=== PATIENT | female | born 1955 | race Caucasian/White ===

== ENCOUNTER 2023-11-09 11:45 | Emergency (ER) | payer OTHER, SELFPAY ==
--- NOTE | ~2023-11-09 | XR_ITS ---
EXAMINATION: XR CHEST CLINICAL INFORMATION: Chest pain COMPARISON: None available. TECHNIQUE: Frontal view of the chest was obtained. FINDINGS: Lungs grossly clear. Heart and pulmonary vessels are normal. No congestive change. XR/XR chest 1V IMPRESSION: No active disease.
--- NOTE | 2023-11-09 11:48 | ECG_ITS ---
Test Reason : CHEST PAIN Blood Pressure : / mmHG Vent. Rate : 076 BPM Atrial Rate : 076 BPM P-R Int : 168 ms QRS Dur : 088 ms QT Int : 382 ms P-R-T Axes : 026 -01 040 degrees QTc Int : 429 ms Normal sinus rhythm Normal ECG No previous ECGs available Referred By: Aaliyah Yates Electronically Signed By:JAVON VASQUEZ
[2023-11-09 11:57] VITALS: BP 141/74; PULSE 80; RESP 18; TEMP 36.6; O2SAT 95; BMI 28.8
--- NOTE | 2023-11-09 11:58 | ED_ITS ---
HPI - SOB/Dyspnea General Chief Complaint: Chest Pain Stated Complaint: SOB, burning sensation in chest Time Seen by Provider: 11/09/23 12:54 Related Data Allergies Allergy/AdvReac Type Severity Reaction Status Date / Time No Known Allergies Allergy Verified 11/09/23 12:00 [facility] Social History Social History Advance Directives: No Do you have a plan to hurt others: No Plan Physical Exam 2 Vital Signs: Vital Signs: Last Vital Signs Temp 98.6 F 11/09/23 15:22 Pulse 84 11/09/23 15:22 Resp 18 11/09/23 15:22 BP 98/59 L 11/09/23 15:22 Pulse Ox 94 11/09/23 15:22 O2 Del Method Room Air 11/09/23 15:22 BMI result Body Mass Index 28.8 Course Course Course Narrative: This is a Rapid Medical Exam performed in triage by Aaliyah Yates PA-C. Full HPI, ROS and PE to be performed by primary ED provider. 68 year-old F w/ PMHx DM, HTN, UTI on Macrobid presenting to the ED c/o chest discomfort, palpiations since 2AM waking her up from sleep. Sx lasted until 9AM, reports mild improvement at present. +SOB. Reports dizziness at present. On ASA PE: talking incomplete sentences, ambulating w/steady gait Plan: EKG, Labs, CXR ordered Medications Administered Discontinued Medications Generic Name Dose Route Start Last Admin Trade Name Freq PRN Reason Stop Dose Admin Acetaminophen 975 mg 11/09/23 13:16 11/09/23 13:39 Acetaminophen 325 Mg Tablet PO 11/09/23 13:17 975 mg ONCE ONE Administration Medical Decision Making Lab Data 11/09/23 12:12 11/09/23 12:12 Labs: Lab Results 11/09/23 11/09/23 Range/Units 12:12 14:29 WBC 8.6 (4.8-10.8) X10*3/uL RBC 4.18 L (4.20-5.50) X10*6/uL Hgb 12.9 (12.0-16.0) g/dl Hct 39.2 (37.0-47.0) % MCV 93.8 (80.0-98.0) fL MCH 30.9 (27.0-33.0) pg MCHC 32.9 (31.0-35.0) g/dl RDW 13.2 (11.0-16.0) % Plt Count 199 (160-400) X10*3/uL MPV 10.7 (9.4-12.3) fL Immature Gran % (Auto) 0.3 (0.0-0.4) % Neut % (Auto) 87.3 H (45-73) % Lymph % (Auto) 7.0 L (20-40) % Irwin % (Auto) 4.3 (2-11) % Eos % (Auto) 0.9 (0-4) % Baso % (Auto) 0.2 (0-2) % Lymph # (Auto) 0.6 L (1.2-4.9) X10*3/uL Irwin # (Auto) 0.4 (0.1-1.2) X10*3/uL Eos # (Auto) 0.1 (0.0-0.4) X10*3/uL Baso # (Auto) 0.0 (0.0-0.2) X10*3/uL Abs Immat Gran (auto) 0.03 (0.00-0.03) X10*3/uL Absolute Neuts (auto) 7.5 (2.0-8.3) x10*3/uL Absolute Nucleated RBC 0.000 (0.0-0.012) X10*3/uL Nucleated RBC % (auto) 0.0 (0.0-0.2) /100WBC PT 11.7 (11.1-13.3) SEC INR 1.0 (0.9-1.1) Sodium 137 (135-145) mmol/L Potassium 3.6 (3.3-5.1) mmol/L Chloride 100 (96-108) mmol/L Carbon Dioxide 26 (22-29) mmol/L Anion Gap 15 (12-20) BUN 10 (9-16) mg/dL Creatinine 0.79 (0.5-1.4) mg/dL Estim Creat Clear Calc 60.5 Estimated GFR > 60 Random Glucose 152 H (60-115) mg/dL Calcium 10.2 (8.4-10.2) mg/dL Magnesium 1.9 (1.6-2.6) mg/dL Total Bilirubin 1.0 (0.0-1.0) mg/dL Direct Bilirubin 0.3 (0.0-0.5) mg/dL AST 20 (5-31) U/L ALT 17 (0-31) U/L Alkaline Phosphatase 68 (39-117) U/L Troponin I High Sens 7.4 8.6 (<3.5-17.0) ng/L B-Natriuretic Peptide 169 H (<100) pg/mL Total Protein 7.8 (6.5-8.0) g/dL Albumin 4.4 (3.5-5.0) g/dL Influenza Type A (PCR) NEGATIVE (Negative) Influenza Type B (PCR) NEGATIVE (Negative) RSV RNA Qual (PCR) NEGATIVE (Negative) SARS-CoV-2 RNA (RT-PCR) NEGATIVE (Negative) Discharge Plan Discharge Clinical Impression: Palpitations Patient Disposition: Home, Self-Care Instructions: Heart Palpitations (ED) Additional Instructions: You were seen and evaluated in the emergency room. Your vital signs were normal and you would not have fever. Your blood work was normal including your cardiac enzymes. Your EKG was normal. Your chest x-ray was normal. Please follow-up with your primary care doctor in the next 3-5 days to discuss using a ?Holter monitor ? for continuous heart monitoring. Please return to the emergency room if you develop any new or concerning symptoms including, but not limited to chest pain, difficulty breathing, fever, palpitations, lightheadedness, loss of consciousness, speech changes, vision changes, numbness/tingling, facial droop or arm/leg weakness. Discharge Date/Time: 11/09/23 15:23 Print Language: Polish
--- OUTSIDE RECORDS SUMMARY | 2023-11-09 12:14 | XMS_ITS | Continuity of Care Document ---
Author Organization [facility] Address [address] [place] [id number]- Care Team Providers Care Sausage Mixer Name Role Phone Dorothy Mcconnell Primary Care Physician [id number]s): [facility]/16/[facility] - 05/16/22 [facility] [address] [place] [id number] Attending Physician: Abilio Acuña Admitting Physician: AdmAbilio ye Referring Physician: Admtr ArFarzaneh Allergies, Adverse Reactions, Alerts No Known Allergies Medications aspirin 81 mg oral tablet 1 tablet = 81 mg, By Mouth, Daily, tablet, 0 Refills, Maintenance Start Date: 07/30/10 Status: Ordered atenolol 50 mg oral tablet 1 tablet = 50 mg, By Mouth, Daily, 0 Refills, Maintenance Start Date: 07/30/10 Status: Ordered docusate sodium 100 mg oral tablet 2 tablets, By Mouth, Daily, # 60 tablet, 6 Refills, Maintenance Start Date: 08/28/10 Status: Ordered metformin 500 mg oral tablet 1 tablet = 500 mg, By Mouth, 2 times a day, 0 Refills, Maintenance Start Date: 07/30/10 Status: Ordered [id number] with Electolytes - oral powder for reconstitution 240 mL, By Mouth, Every 10 minutes, # 4,000 mL, 0 Refills, Maintenance Start Date: 07/30/10 Status: Ordered simvastatin 10 mg oral tablet 1 tablet = 10 mg, By Mouth, Daily at bedtime, 0 Refills, Maintenance Start Date: 07/30/10 Status: Ordered Problem List Condition Confirmation Course Effective Dates Status Health St atus Informant Diabetes mellitus - adult onset Confirmed Active Elevated lipids Confirmed Active Hypertension Confirmed Active Patient Care team information Care Team Personnel Name: Dorothy Mcconnell C Position: [facility] Outreach Member Role: PCP Address: Address: [address] [place] [phone]- Care Team Related Persons Name: LB MONTERO Address: home [address] [place] [address]
--- OUTSIDE RECORDS SUMMARY | 2023-11-09 12:14 | XMS_ITS | Continuity of Care Document ---
Author Organization [facility] Address [address] [place] [address]- Care Team Providers Care Chain Saw Driver Name Role Phone Dorothy Mcconnell Primary Care Physician Encounter [facility] [place] Date(s): 02/26/23 - 02/27/[address] [address]- Discharge Disposition: A-D/C Walkout Attending Physician: Not on Staff, Attending MD Admitting Physician: Not on Staff, Admitting MD Referring Physician: Not on Staff, Referring MD Allergies, Adverse Reactions, Alerts No Known Allergies [...] Refills, Maintenance Start Date: 07/30/10 Status: Ordered Voltaren Arthritis Pain 1% topical gel = 2 Gm, Topically, 4 times a day, # 240 Gm, 0 Refills, Maintenance, 12/15/22 12:07:00 EDT, [id number], Partial fill upon patient request if the prescription is for a schedule II opioid drug.,2 Gm Topically 4 times a day,x30 days, 156, cm, ... Start Date: 12/15/22 Stop Date: 01/14/23 Status: Ordered Problem List Condition Confirmation Course Effective Dates Status Health St atus Informant Diabetes mellitus - adult onset Confirmed Active Elevated lipids Confirmed Active Hypertension Confirmed Active Vital Signs Most recent to oldest [Reference Range]: 1 2 3 Oxygen Saturation [94-100 %] 98 % (02/26/23 9:53 PM) 100 % (02/26/23 8:42 PM) 99 % (02/26/23 7:09 PM) Pulse Rate [55-90 bpm] 92 bpm *H* (02/26/23 9:53 PM) 81 bpm (02/26/23 8:42 PM) 78 bpm (02/26/23 7:09 PM) Blood Pressure [90-138/55-84 mm Hg] 138/68mm Hg (02/26/23 9:53 PM) 123/79mm Hg (02/26/23 8:42 PM) 129/69mm Hg (02/26/23 7:09 PM) Respiratory Rate [16-30 br/min] 18 br/min (02/26/23 7:09 PM) 18 br/min (02/26/23 7:01 PM) Temperature [96.8-100.4 DegF] 97.7 DegF (02/26/23 9:53 PM) 98.0 DegF (02/26/23 8:42 PM) 97.8 DegF (02/26/23 7:09 PM) Mode of Delivery (Oxygen) Room air (02/26/23 7:09 PM) Room air (02/26/23 7:01 PM) Blood pressure sites Arm, left (02/26/23 9:53 PM) Arm, right (02/26/23 8:42 PM) Arm, left (02/26/23 7:09 PM) Temperature Route Oral (02/26/23 9:53 PM) Oral (02/26/23 8:42 PM) Oral (02/26/23 7:09 PM) EKG study * Event Display: EKG Authored Date: Patient Care team information Care Team Personnel Name: Dorothy Mcconnell Position: S Outreach Member Role: PCP Address: Address: [address] [place] [id number]- Care Team Related Persons Name: LB MONTERO Address: home [address] [place] [id number]
--- OUTSIDE RECORDS SUMMARY | 2023-11-09 12:14 | XMS_ITS | Continuity of Care Document ---
Author Organization [facility] Address [address] [place] [phone]- Care Team Providers Care Director Public Name Role Phone Dorothy Mcconnell Primary Care Physician [id number] Date[facility] 11/13/21 - 12/13/[facility] [address] [address] Attending Physician: Abilio Acuña Admitting Physician: AdmAbilio [...] Date: 07/30/10 Status: Ordered Problem List Condition Effective Dates Status Health Status Inform ant Diabetes mellitus - adult onset(Confirmed) Active Elevated lipids(Confirmed) Active Hypertension(Confirmed) Active Care Team Personnel Name: Dorothy Mcconnell Address: [address] [place] [address] [facility] [place], [place] [address]
[2023-11-09 12:17] LABS: MANUAL DIFF FLAG NO
[2023-11-09 12:19] LABS: Basophils Percent Auto 0.2 % (0-2); Eosinophils Absolute Auto 0.1 X10*3/uL (0.0-0.4); Eosinophils Percent Auto 0.9 % (0-4); Hematocrit 39.2 % (37.0-47.0); Hemoglobin 12.9 g/dl (12.0-16.0); Imm Gran Abs Auto 0.03 X10*3/uL (0.00-0.03); Imm Gran Pct Auto 0.3 % (0.0-0.4); Lymphocytes Absolute Auto 0.6 X10*3/uL (1.2-4.9); Mean Corpuscular HGB Conc 32.9 g/dl (31.0-35.0); Mean Corpuscular Hemoglobin 30.9 pg (27.0-33.0); Mean Corpuscular Volume 93.8 fL (80.0-98.0); Mean Platelet Volume 10.7 fL (9.4-12.3); Monocytes Absolute Auto 0.4 X10*3/uL (0.1-1.2); Monocytes Percent Auto 4.3 % (2-11); Neutrophils Absolute Auto 7.5 x10*3/uL (2.0-8.3); Neutrophils Percent Auto 87.3 % (45-73); Platelet Count 199 X10*3/uL (160-400); Red Blood Count 4.18 X10*6/uL (4.20-5.50); Red Cell Distribution Width 13.2 % (11.0-16.0); White Blood Count 8.6 X10*3/uL (4.8-10.8)
[2023-11-09 12:26] LABS: Prothrombin Time 11.7 SEC (11.1-13.3)
[2023-11-09 12:35] LABS: Alanine Aminotransferase 17 U/L (0-31); Albumin Level 4.4 g/dL (3.5-5.0); Alkaline Phosphatase 68 U/L (39-117); Anion Gap 15 (12-20); Aspartate Amino Transferase 20 U/L (5-31); Bilirubin Direct 0.3 mg/dL (0.0-0.5); Blood Urea Nitrogen 10 mg/dL (9-16); Calcium 10.2 mg/dL (8.4-10.2); Carbon Dioxide 26 mmol/L (22-29); Chloride 100 mmol/L (96-108); Creatinine Clr Calc Pharmacy 60.5; Estimated Glomerular Filt Rate > 60; Glucose Random 152 mg/dL (60-115); Magnesium 1.9 mg/dL (1.6-2.6); Potassium 3.6 mmol/L (3.3-5.1); Sodium 137 mmol/L (135-145); Total Protein 7.8 g/dL (6.5-8.0)
[2023-11-09 12:40] LABS: B Type Natriuretic Peptide 169 pg/mL (<100)
[2023-11-09 12:42] LABS: Troponin-I High Sensitivity 7.4 ng/L (<3.5-17.0)
--- NOTE | 2023-11-09 12:55 | ED.GENADULT ---
HPI - General Adult General Chief complaint: Chest Pain Stated complaint: SOB, burning sensation in chest Time Seen by Provider: 11/09/23 12:54 Source: patient Mode of arrival: ambulatory Limitations: no limitations History of Present Illness HPI narrative: This is a 68-year-old woman with pmhx HTN, HLD, NIDDM (on Metformin) who presents for evaluation of palpitations, chest pain and dyspnea. She states she starting feeling this way overnight while sleeping. She states similar episode a few years ago associated stress. Patient's daughter in the room states patient has been stressed recently. Patient states this lasted several hours overnight and she did not sleep. She states having a headache at this time. She states no LOC or nausea/vomiting. She states she was recently diagnosed with a stomach problem and started taking Macrobid (she shows antibiotic Rx bottle to this historian in the exam room). Patient states no flank pain, fever, dysuria or urinary frequency/urgency. Patient states no previous TN or CVA/TIA. She states no exertional chest pain or dyspnea. She states no leg swelling. She states no orthopnea. Related Data Allergies Allergy/AdvReac Type Severity Reaction Status Date / Time No Known Allergies Allergy Verified 11/09/23 12:00 Review of Systems Review of Systems: ROS as per HPI [facility] Social History Social History Advance Directives: No Do you have a plan to hurt others: No Plan Physical Exam ED Vital Signs: Vital Signs - 24 hr 11/09/23 11:57 Temperature 97.9 F Pulse Rate 80 Respiratory Rate 18 Blood Pressure 141/74 H Pulse Oximetry 95 Oxygen Delivery Method Room Air BMI result Body Mass Index 28.8 Gen: NAD, AOx3 HEENT: NCAT, EOMI, normal conjunctiva, neck supple CV: RRR. No murmurs appreciated, no peripheral pitting edema Pulm: CTAB, no increased work of breathing GI: Soft, NTND, no rebound, guarding or rigidity MSK: No asymmetrical lower extremity edema, no calf erythema/edema/tenderness to palpation Neuro: Grossly non focal, symmetrical face, tongue protrudes midline, no nystagmus, sensation intact to bilateral upper and lower extremities, 5/5 motor strength in bilateral upper and lower extremities Medications Administered Discontinued Medications Generic Name Dose Route Start Last Admin Trade Name Freq PRN Reason Stop Dose Admin Acetaminophen 975 mg 11/09/23 13:16 11/09/23 13:39 Acetaminophen 325 Mg Tablet PO 11/09/23 13:17 975 mg ONCE ONE Administration Medical Decision Making Medical Decision Making [facility] Narrative: Differential diagnosis includes, but is not limited to arrhythmia, electrolyte derangement, acute kidney injury, ACS, pneumothorax, anxiety, panic, PVCs, migraine headache, tension headache. I do not suspect intracranial hemorrhage or meningitis given reassuring examination as above with resolution of symptoms following Tylenol. Further, patient has no infectious symptoms or fever. She is well-appearing, alert and oriented and this is not encephalitis. Patient is afebrile and hemodynamically stable on room air. Exam is benign and reassuring. Patient has no neurological deficits. NIH stroke scale 0. Patient is provided Tylenol for headache. I reviewed and interpreted labs, which are noncontributory. I reviewed and interpreted EKG, which is unremarkable for any acute findings. Diagnostic imaging studies as below are unremarkable for any acute findings. Patient has negative for COVID-19, influenza, RSV. On re-examination, patient is well-appearing and in no acute distress. Patient ambulates independently with normal gait. ?Patient states symptoms have resolved. ?There is no indication for further emergent evaluation in this otherwise well-appearing patient as above. ?Patient is provided written and verbal instructions, educational materials, recommendations for outpatient follow-up, strict return precautions and teach back is performed. ?Patient states understanding and agreement with plan of care. ?Patient is discharged home in stable and improved condition. Admission/Observation Consideration of admission/observation: Escalation of care including admission/observation considered Lab Data [facility] Lab Attestation statement: I reviewed the patient's lab results. I independently reviewed and interpreted labs which as below are unremarkable and noncontributory. 11/09/23 12:12 11/09/23 12:12 Labs: Lab Results 11/09/23 11/09/23 Range/Units 12:12 14:29 WBC 8.6 (4.8-10.8) X10*3/uL RBC 4.18 L (4.20-5.50) X10*6/uL Hgb 12.9 (12.0-16.0) g/dl Hct 39.2 (37.0-47.0) % MCV 93.8 (80.0-98.0) fL MCH 30.9 (27.0-33.0) pg MCHC 32.9 (31.0-35.0) g/dl RDW 13.2 (11.0-16.0) % Plt Count 199 (160-400) X10*3/uL MPV 10.7 (9.4-12.3) fL Immature Gran % (Auto) 0.3 (0.0-0.4) % Neut % (Auto) 87.3 H (45-73) % Lymph % (Auto) 7.0 L (20-40) % Bladen % (Auto) 4.3 (2-11) % Eos % (Auto) 0.9 (0-4) % Baso % (Auto) 0.2 (0-2) % Lymph # (Auto) 0.6 L (1.2-4.9) X10*3/uL Bladen # (Auto) 0.4 (0.1-1.2) X10*3/uL Eos # (Auto) 0.1 (0.0-0.4) X10*3/uL Baso # (Auto) 0.0 (0.0-0.2) X10*3/uL Abs Immat Gran (auto) 0.03 (0.00-0.03) X10*3/uL Absolute Neuts (auto) 7.5 (2.0-8.3) x10*3/uL Absolute Nucleated RBC 0.000 (0.0-0.012) X10*3/uL Nucleated RBC % (auto) 0.0 (0.0-0.2) /100WBC PT 11.7 (11.1-13.3) SEC INR 1.0 (0.9-1.1) Sodium 137 (135-145) mmol/L Potassium 3.6 (3.3-5.1) mmol/L Chloride 100 (96-108) mmol/L Carbon Dioxide 26 (22-29) mmol/L Anion Gap 15 (12-20) BUN 10 (9-16) mg/dL Creatinine 0.79 (0.5-1.4) mg/dL Estim Creat Clear Calc 60.5 Estimated GFR > 60 Random Glucose 152 H (60-115) mg/dL Calcium 10.2 (8.4-10.2) mg/dL Magnesium 1.9 (1.6-2.6) mg/dL Total Bilirubin 1.0 (0.0-1.0) mg/dL Direct Bilirubin 0.3 (0.0-0.5) mg/dL AST 20 (5-31) U/L ALT 17 (0-31) U/L Alkaline Phosphatase 68 (39-117) U/L Troponin I High Sens 7.4 8.6 (<3.5-17.0) ng/L B-Natriuretic Peptide 169 H (<100) pg/mL Total Protein 7.8 (6.5-8.0) g/dL Albumin 4.4 (3.5-5.0) g/dL Influenza Type A (PCR) NEGATIVE (Negative) Influenza Type B (PCR) NEGATIVE (Negative) RSV RNA Qual (PCR) NEGATIVE (Negative) SARS-CoV-2 RNA (RT-PCR) NEGATIVE (Negative) Independent Interpretation I performed an independent interpretation of an: EKG and Plain X-Ray Interpretation: I independently reviewed and interpreted EKG which demonstrates normal sinus rhythm at 76 beats per minute, CT 168, QRS 88, QTC 429, no Brugada morphology, no ST/T-wave changes, no delta wave, no epsilon wave, no dagger-like Q-waves, no STEMI. I independently reviewed and interpreted chest x-ray which demonstrates no focal consolidation or pneumothorax. Radiology Impression Discussion of test interpretation with radiology: I have reviewed the radiologist's reading. Radiologist Impression: IMPRESSION: No active disease. Dictated By: Percy Powell MD Signed By: <Electronically signed by Percy Powell MD in OV> 11/09/23 1244 Discharge Plan Discharge Clinical Impression: Palpitations Patient Disposition: Home, Self-Care Instructions: Heart Palpitations (ED) Additional Instructions: You were seen and evaluated in the emergency room. Your vital signs were normal and you would not have fever. Your blood work was normal including your cardiac enzymes. Your EKG was normal. Your chest x-ray was normal. Please follow-up with your primary care doctor in the next 3-5 days to discuss using a ?Holter monitor ? for continuous heart monitoring. Please return to the emergency room if you develop any new or concerning symptoms including, but not limited to chest pain, difficulty breathing, fever, palpitations, lightheadedness, loss of consciousness, speech changes, vision changes, numbness/tingling, facial droop or arm/leg weakness. Print Language: Indonesian
[2023-11-09 13:01] LABS: Influenza A PCR NEGATIVE (Negative); Influenza B PCR NEGATIVE (Negative); Resp Syncy Virus RNA Qual PCR NEGATIVE (Negative); SARS COV2 PCR INHOUSE NEGATIVE (Negative)
[2023-11-09] MEDS: Acetaminophen 325 MG TABLET 975 MG PO (13:39)
[2023-11-09 14:59] LABS: Troponin-I High Sensitivity 8.6 ng/L (<3.5-17.0)
[2023-11-09 15:22] VITALS: BP 98/59; PULSE 84; RESP 18; TEMP 37; O2SAT 94
== END 2023-11-09 15:23 | disposition home or self-care (01) ==
PROVIDERS: Physician Assistant; Emergency Provider Emergency Medicine
DX: R00.2 Palpitations (principal); Z03.818 Encounter for observation for suspected exposure to other biological agents ruled out; R06.02 Shortness of breath; E11.9 Type 2 diabetes mellitus without complications; I10 Essential (primary) hypertension; E78.5 Hyperlipidemia, unspecified; Z79.84 Long term (current) use of oral hypoglycemic drugs
CPT/HCPCS: 0241U; 36415; 71045; 80048; 80076; 83735; 83880; 84484; 85025; 85610; 93005; 99283

== ENCOUNTER → 2023-11-09 11:48 | Outpatient (BNV) | payer OTHER, SELFPAY | PROVIDERS: Emergency Provider Emergency Medicine; Visit Provider Internal Medicine | DX: R07.9 Chest pain, unspecified (principal) | CPT/HCPCS: 93010 ==